=== PATIENT | female | born 1960 | race Caucasian/White ===

== ENCOUNTER 2017-12-20 17:33 | Emergency (ER) | payer MEDICARE, MEDICAID ==
[~2017-12-20] VITALS: Ht 167.6 cm; Wt 63.5 kg
[2017-12-20 18:37] LABS: BUN/Creatinine Ratio 18.4; Bilirubin, Total 0.2 mg/dL (0.2-1.0); Calcium 8.8 mg/dL (8.5-10.1); Potassium 3.8 mmol/L (3.5-5.1); Total Protein 7.8 g/dL (6.4-8.2)
[2017-12-20 18:40] LABS: Basophils # (auto) 0.1 uL; Eosinophils # (auto) 0.1 uL; Hemoglobin 8.7 g/dL (12.2-16.2); Monocytes # (auto) 0.5 uL
[2017-12-20 18:42] LABS: Acetaminophen < 2.0 ug/mL (10-30); Salicylate 2.9 mg/dL (2.8-20.0)
[2017-12-20 18:43] LABS: Basophils % (auto) 0.9 % (0.0-2.0); Eosinophils % (auto) 1.4 % (0.0-7.0); Hematocrit 29.7 % (36.0-46.0); Lymphocytes % (auto) 26.6 % (10.0-50.0); Mean Corpuscular Hemoglobin 18.6 pg (28.0-32.0); Mean Corpuscular Hgb Conc. 29.3 g/dL (32.0-36.0); Mean Corpuscular Volume 63.5 fL (80.0-100.0); Monocytes % (auto) 6.9 % (0.0-12.0); Neutrophils # (auto) 4.9 uL; Neutrophils % (auto) 64.2 % (37.0-80.0); Nucleated Red Blood Cells % 0.1 %; Platelet Count (auto) 672 10^3/uL (140-450); Red Blood Cells 4.68 10^6/uL (4.0-5.20); White Blood Cell 7.7 10^3/uL (4.4-10.8)
[2017-12-20 18:50] LABS: Red Cell Distribution Width 28.2 % (11.8-14.3)
[2017-12-20 18:51] LABS: Alcohol, Urine < 3.0 mg/dL (0-5); Barbiturate Scree,Urine NEGATIVE (NEGATIVE); Benzodiazephine Screen, Urine NEGATIVE (NEGATIVE); Cannabinoid Screen, Urine NEGATIVE (NEGATIVE); Cocaine Screen, Urine NEGATIVE (NEGATIVE); Opiate Scree,Urine NEGATIVE (NEGATIVE); Phencyclidine Screen, Urine NEGATIVE (NEGATIVE)
[2017-12-20 18:54] LABS: Amphetamine Screen, Urine NEGATIVE (NEGATIVE)
[2017-12-20] MEDS ORDERED: LORazepam 0.5 MG TAB PO ONE (20:45)
[2017-12-20] MEDS ORDERED: hydrOXYzine 25 MG TAB or CAP ONE (23:09)
[2017-12-20] MEDS: hydrOXYzine 25 MG TAB or CAP PO PRN (23:13)
[2017-12-20] MEDS ORDERED: risperiDONE 1 MG TAB PO ONE (23:15)
[2017-12-20] MEDS ORDERED: GABAPENTIN 300 MG CAP PO ONE (23:15)
[2017-12-20] MEDS ORDERED: GABAPENTIN 300 MG CAP ONE (23:19)
[2017-12-21] MEDS ORDERED: GABAPENTIN 300 MG CAP PO SCH (06:00)
[2017-12-21] MEDS ORDERED: GABAPENTIN 300 MG CAP ONE (06:57)
[2017-12-21] MEDS ORDERED: SERTRALINE HCL 50 MG TAB PO SCH (07:00)
[2017-12-21] MEDS ORDERED: NICOTINE 21MG/24 HR TOPICAL PATCH TD SCH (10:00)
[2017-12-21] MEDS: hydrOXYzine 25 MG TAB or CAP PO PRN (17:59)
[2017-12-21] MEDS ORDERED: LEVOFLOXACIN 500 MG TAB PO ONE (21:45)
[2017-12-21] MEDS ORDERED: risperiDONE 1 MG TAB PO SCH (22:00)
[2017-12-21 23:38] VITALS: BP 130/72
== END 2017-12-21 23:59 | disposition short-term general hospital (02) ==
LOC: ER 17:33 → EDBD 17:33 → ER 12-21 23:59
DX: R45.851 Suicidal ideations (principal); F32.9 Major depressive disorder, single episode, unspecified; M19.90 Unspecified osteoarthritis, unspecified site; F17.210 Nicotine dependence, cigarettes, uncomplicated; F15.10 Other stimulant abuse, uncomplicated; F12.10 Cannabis abuse, uncomplicated; Z59.0 Homelessness
CPT/HCPCS: 36415; 71045; 80053; 80307; 80320; 80329; 82962; 85025